=== PATIENT | male | born 1985 | race Caucasian/White ===

== ENCOUNTER 2019-01-23 13:52 | Emergency (ER) | payer MEDICAID | END 2019-01-23 15:19 | disposition left against medical advice (07) | LOC: EMS 13:56 | DX: R19.7 Diarrhea, unspecified (principal); Z53.21 Procedure and treatment not carried out due to patient leaving prior to being seen by health care provider ==

== ENCOUNTER 2023-01-06 18:05 | Emergency (ER) | payer MEDICAID ==
[~2023-01-06] VITALS: Ht 170.2 cm; Wt 70.5 kg
[2023-01-06 18:06] VITALS: TEMP 98.4
[2023-01-06] MEDS: PERTUSS(ACELL),DIPH,TET VAC/PF 0.5 ML SYRINGE IM. ONE (20:33)
[2023-01-06 20:54] VITALS: BP 141/74; PULSE 79; RESP 18
== END 2023-01-06 20:56 | disposition home or self-care (01) ==
LOC: EMS 18:05
DX: S60.811A Abrasion of right wrist, initial encounter (principal); S05.01XA Injury of conjunctiva and corneal abrasion without foreign body, right eye, initial encounter; F17.210 Nicotine dependence, cigarettes, uncomplicated; F12.90 Cannabis use, unspecified, uncomplicated; Z59.00 Homelessness unspecified; Y04.8XXA Assault by other bodily force, initial encounter; Y93.89 Activity, other specified; Y92.89 Other specified places as the place of occurrence of the external cause; Y99.8 Other external cause status
CPT/HCPCS: 90471; 90715; 99283

== ENCOUNTER 2024-12-21 11:05 | Emergency (ER) | payer MEDICAID ==
[~2024-12-21] VITALS: Ht 172.7 cm; Wt 81.8 kg
[~2024-12-21 11:05] MED LIST: ACET-3385 PO; IBUP-1492 PO
[2024-12-21 11:07] VITALS: BP 131/89; PULSE 62; RESP 17; TEMP 98.8; O2SAT 97
[2024-12-21] MEDS: IBUPROFEN 600 MG TABLET PO ONE (12:14)
== END 2024-12-21 13:07 | disposition home or self-care (01) ==
LOC: EMS 11:05
DX: S63.602A Unspecified sprain of left thumb, initial encounter (principal); F12.90 Cannabis use, unspecified, uncomplicated; F17.210 Nicotine dependence, cigarettes, uncomplicated; R20.2 Paresthesia of skin; Z79.899 Other long term (current) drug therapy; X50.0XXA Overexertion from strenuous movement or load, initial encounter; Y93.89 Activity, other specified; Y92.89 Other specified places as the place of occurrence of the external cause; Y99.8 Other external cause status
CPT/HCPCS: 99284; 73110-TC; 73130-TC; Z7502; Z7610